=== PATIENT | female | born 1975 | race Two or more races ===

== ENCOUNTER 2023-05-03 05:32 | Day surgery (SDC) | payer OTHER ==
[2023-05-03] MEDS ORDERED: BUPIVACAINE HCL/PF 0.5% 30ML ML ONE (08:10)
[2023-05-03] MEDS ORDERED: CLINDAMYCIN PHOSPHATE 150 MG/ML (900mg) ONE (08:10)
[2023-05-03] MEDS ORDERED: CEFAZOLIN SODIUM 1,000 MG VIAL ONE (08:10)
[2023-05-03] MEDS ORDERED: GENTAMICIN SULFATE 40 MG/ML VIAL ONE (08:10)
[2023-05-03] MEDS ORDERED: POVIDONE-IODINE 118 ML BOTT TOP ONE ×2 (08:11→11:00)
[2023-05-03] MEDS ORDERED: POVIDONE-IODINE SCRUB 118 ML BOTT TOP ONE ×2 (08:11→11:00)
[2023-05-03] MEDS ORDERED: LIDOCAINE HCL 1%/Epi 20ML VIAL IJ ONE (08:11)
[2023-05-03] MEDS ORDERED: GENTAMICIN SULFATE 40 MG/ML VIAL IR ONE (11:00)
[2023-05-03] MEDS ORDERED: CEFAZOLIN SODIUM 1,000 MG VIAL IJ ONE (11:00)
[2023-05-03] MEDS ORDERED: CLINDAMYCIN PHOSPHATE 150 MG/ML (900mg) IV ONE (11:15)
== END 2023-05-03 15:30 | disposition home or self-care (01) ==
LOC: CIR.AMB 05:32
PROVIDERS: ATTEND Surgery
DX: D05.11 Intraductal carcinoma in situ of right breast (principal); Z90.13 Acquired absence of bilateral breasts and nipples; R59.0 Localized enlarged lymph nodes; N60.92 Unspecified benign mammary dysplasia of left breast